=== PATIENT | male | born 1965 | race Caucasian/White ===

== ENCOUNTER 2024-09-14 19:11 | Emergency (ER) | payer OTHER ==
[~2024-09-14] VITALS: Ht 177.8 cm; Wt 113.4 kg
[~2024-09-14 19:11] MED LIST: AUGMENTIN 875-875 MG PO; CIPRO500 MG PO; LISINOPRIL10 MG; NEXIUM40 MG PO; PROTONIX40 MG PO
[2024-09-14] MEDS ORDERED: Tdap Vaccine 0.5 ML SYR (Adult Vaccine) IM ONE (20:00)
[2024-09-14 20:35] LABS: BASO # 0.1 10*3/uL (0.0-0.1); BASO % 0.6 % (0.0-1.0); EOS # 0.4 10*3/uL (0.0-0.4); EOS % 3.8 % (1.0-4.0); MEAN CELL VOLUME 87.2 fl (80.0-94.0); MEAN CORPUSCULAR HGB 27.6 pg (27.0-31.0); MEAN CORPUSCULAR HGB CONC 31.7 g/dl (33.0-37.0); MEAN PLATELET VOLUME 10.3 fl (9.6-12.3); MONO # 0.7 10*3/uL (0.1-1.0); MONO % 5.9 % (3.0-9.0); NEUT % 71.9 % (47.0-73.0); PLATELET COUNT AUTOMATED 221 10*3/uL (130-400); RED BLOOD COUNT 5.39 10*6/uL (4.50-5.90); WHITE BLOOD COUNT 11.1 10*3/uL (4.8-10.8)
[2024-09-14 21:01] LABS: BUN 11 mg/dl (9-23); CHLORIDE 104 mmol/L (98-107); POTASSIUM 4.4 mmol/L (3.4-5.1)
[2024-09-14] MEDS ORDERED: ACETAMINOPHEN 325 MG TAB PO ONE (21:05)
[2024-09-14] MEDS ORDERED: hydrALAZINE hydrochloride 20 MG/ML VIAL IV ONE (21:05)
== END 2024-09-15 00:12 | disposition short-term general hospital (02) ==
LOC: ED 19:11
PROVIDERS: Internal Medicine
DX: S02.40CA Maxillary fracture, right side, initial encounter for closed fracture (principal); I16.1 Hypertensive emergency; M25.531 Pain in right wrist; I10 Essential (primary) hypertension; W01.0XXA Fall on same level from slipping, tripping and stumbling without subsequent striking against object, initial encounter; Y93.89 Activity, other specified; Y92.89 Other specified places as the place of occurrence of the external cause; Y99.8 Other external cause status

== ENCOUNTER → 2025-04-17 | Outpatient (CLI) | payer OTHER ==
[2025-04-17 09:49] LABS: MEAN CELL VOLUME 89.0 fl (80.0-94.0); MEAN CORPUSCULAR HGB 28.6 pg (27.0-31.0); MEAN PLATELET VOLUME 9.9 fl (9.6-12.3); NUCLEATED RED BLOOD CELL 0.0 % (0.0-0.0); NUCLEATED RED BLOOD CELL 0.0 10*3/uL (0.0-0.0); PLATELET COUNT AUTOMATED 203.0 10*3/uL (130-400); RED CELL DISTRI WIDTH 13.9 % (0-14.5)
[2025-04-17 10:30] LABS: BUN 12 mg/dl (9-23); SGPT/ALT 19 U/L (5-49)
[2025-04-17 10:39] LABS: VITAMIN D, 25-HYDROXY 47.8 ng/mL (30-100)
== END | disposition home or self-care (01) ==
LOC: LAB 09:01
PROVIDERS: ATTEND Family Medicine
DX: M17.0 Bilateral primary osteoarthritis of knee (principal); M25.562 Pain in left knee; M25.561 Pain in right knee; I10 Essential (primary) hypertension; E55.9 Vitamin D deficiency, unspecified

== ENCOUNTER → 2025-05-31 | Outpatient (CLI) | payer OTHER | END | disposition home or self-care (01) | LOC: MRI 12:16 | PROVIDERS: ATTEND Family Medicine | DX: S83.241D Other tear of medial meniscus, current injury, right knee, subsequent encounter (principal); X58.XXXD Exposure to other specified factors, subsequent encounter ==

== ENCOUNTER 2025-06-23 19:00 | Emergency (ER) | payer OTHER ==
[2025-06-23] MEDS ORDERED: Ondansetron Hydrochloride 4 MG TAB SL ONE (20:15)
[2025-06-23] MEDS ORDERED: Acetaminophen/Hydrocodone ES 7.5/325 tablet PO ONE (20:15)
[2025-06-23] MEDS ORDERED: HYDROCODONE-AC1 EAC1 PO (20:59)
== END 2025-06-23 21:15 | disposition home or self-care (01) ==
LOC: ED 19:00
DX: S82.402A Unspecified fracture of shaft of left fibula, initial encounter for closed fracture (principal); I10 Essential (primary) hypertension; W10.9XXA Fall (on) (from) unspecified stairs and steps, initial encounter; Y93.89 Activity, other specified; Y92.89 Other specified places as the place of occurrence of the external cause; Y99.8 Other external cause status